=== PATIENT | female | born 1985 | race Hispanic/Latino ===

== ENCOUNTER 2017-07-06 11:53 | Emergency (ER) | payer OTHER ==
[2017-07-06 12:34] VITALS: BMI 45.8
[2017-07-06 13:04] LABS: BASO % 0.2 % (0.0-2.0); EOS # 0.1 K/uL (0.0-0.7); EOS % 0.6 % (0.0-4.0); HEMATOCRIT 36.6 % (34.0-47.0); LYMPH # 2.2 K/uL (1.0-4.3); LYMPH % 13.8 % (20.0-40.0); MEAN CORPUSCULAR HEMOGLOBIN 32.3 pg (27.0-31.0); MEAN CORPUSCULAR HGB CONC 34.7 g/dL (33.0-37.0); MEAN PLATELET VOLUME 9.3 fl (7.2-11.7); MONO # 1.1 K/uL (0.0-0.8); MONO % 7.1 % (0.0-10.0); NEUT # 12.5 K/uL (1.8-7.0); NEUT % 78.3 % (50.0-75.0); NRBC % 0.1 % (0.0-0.0); RBC URINE 1 /hpf (0-3); URINE BACTERIA MOD (<OCC); URINE BILIRUBIN NEGATIVE (NEGATIVE); URINE BLOOD NEGATIVE (NEGATIVE); URINE COLOR YELLOW (YELLOW); URINE GLUCOSE (UA) NEG (Normal); URINE KETONE NEGATIVE (NEGATIVE); URINE LEUKOCYTE ESTERASE NEG Leu/uL (Negative); URINE PROTEIN NEGATIVE (NEGATIVE); URINE UROBILINOGEN 0.2-1.0 mg/dL (0.2-1.0)
[2017-07-06 13:05] LABS: WBC URINE 5 /hpf (0-5)
[2017-07-06 13:16] LABS: BILIRUBIN,TOTAL 0.4 mg/dl (0.2-1.3); CALCIUM 9.2 mg/dL (8.4-10.2); GFR AFRICAN-AMERICAN > 60; GLUCOSE,RANDOM 101 mg/dL (65-105)
[2017-07-06 13:21] LABS: ALKALINE PHOSPHATASE 145 U/L (38-126); ALT/SGPT 30 U/L (9-52); AST/SGOT 34 U/L (14-36); BLOOD UREA NITROGEN 8 mg/dl (7-17); CARBON DIOXIDE 20 mmol/L (22-30); CHLORIDE 107 mmol/L (98-107); POTASSIUM 4.2 MMOL/L (3.6-5.0); SODIUM 139 mmol/l (132-148)
--- NOTE | 2017-07-06 17:07 | OBHP ---
Datetime: 07/06/2017 16:13 IP Adm Impression: Term, intrauterine IP Chief Complaint Other: headache and elevated BP IP Admit Plan: Observation/Evaluation; Discharge home Admit Comment, IP Provider: CC: I was sent by my MD for elevated bp and headache HPI: 32YO 38.3wks IUP presents to [facility] from MD office to be evalauted for elevated BP in o ffice and headache. Pt was found to have a BP of 149/92 in office and endorses occasional throbbing h eadache. Currently pt does not endorse headache, states that she gets occasional headaches (2x a week ), moderate intensity, and they away by themselves. They last 30mins to 1 hr and go away without any medications. Pt has hx of migrane headache and states that these headaches are similiar in nature to her migrane headaches. Endorses good FM, no LOF, no CTX and no VB. Denies n/v, abdominal pain (LUQ), blurry vision. : Dr. 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 -preeclampsia workup -blood work -vitals -UA and UC_S -continue monitor Blood work appreciated, Lactate dehydrogenase, uric acid, cmp, AST/ALT, platelets are wnl. wBc sig for elevated white count 16, but pt states that she has had that throughout . Pt is current ly asymptomatic and BPs are all stable, 100-110/50-60s. UA sig for moderate bacteria but pt asymptoma tic no dysuria or symptoms at this time- urine culture sent. Pt does not want to take any medicati ons at this time, pt would like to follow up with MD and wait for urine cultures. Pt encouraged to ta ke tylenol with headaches. Labor precautions given. Pt has follow up apt with Dr. Bundy on ay 07/13. D/c home with follow up. Pt seen with attending Dr. Shira Rodriguez, PGY I OB Hospitalist Addendum: Pt seen and examined by me. Agree w/ above. 32 yo at 38+2 wks s ent from Dr. Bundy's office for elavated BP and MOTT. Pt denies MOTT, vision changes, abdominal pain. Pt denies VB, LOF, ctxns and reports movment. Gen'l: pt appears comfortable lying in bed. VE deferred. NST reactive. CBC and CMP are wnl except WBC is elevated at 16. Pt has had elevated WBC throughout the . Ua is sl cloudy, mod bacteria, w/ 2 sq epi. Pt denies any sx of UTI exce pt frequency and declines starting abx. Urine cx sent. Pt discharged home w/ PEC and labor precauti ons. Pt to f/u w/ Dr. Bundy next week. (ES) Pelvic Type - PN: Adequate Extremities - PN: Normal Abdomen - PN: Not Done Back - PN: Not Done Breast - PN: Normal Lungs - PN: Normal Heart - PN: Normal Thyroid - PN: Not Done Neurologic - PN: Normal HEENT - PN: Normal General - PN: Normal FHR - Baseline A Provider: 150 EGA AdmitDate IP: 38.3 Vital Signs Provider: Reviewed; Within Normal Limits IP Chief Complaint: Other NICHD Variability Prov Fetus A: Moderate 6-25bpm NICHD Accel Fetus A IP Provider: 15X15 FHR Category Provider Fetus A: Category I Genitourinary Exam: Normal DTRs - PN: Not Done
[2017-07-06 21:14] VITALS: BP 104/53; PULSE 86; RESP 18; TEMP 98.1; O2SAT 97
== END 2017-07-06 15:00 | disposition home or self-care (01) ==
LOC: H.EROB2 11:53
DX: O13.3 Gestational [pregnancy-induced] hypertension without significant proteinuria, third trimester (principal); O99.113 Other diseases of the blood and blood-forming organs and certain disorders involving the immune mechanism complicating pregnancy, third trimester; D72.829 Elevated white blood cell count, unspecified; F17.200 Nicotine dependence, unspecified, uncomplicated; Z3A.38 38 weeks gestation of pregnancy; Z83.3 Family history of diabetes mellitus; Z90.49 Acquired absence of other specified parts of digestive tract; Z82.49 Family history of ischemic heart disease and other diseases of the circulatory system

== ENCOUNTER 2017-07-13 16:05 | Inpatient (IN) | payer OTHER ==
[2017-07-13 18:12] LABS: ALB/GLOB RATIO 1.1 (1.0-2.1); ALKALINE PHOSPHATASE 155 U/L (38-126); ALT/SGPT 27 U/L (9-52); AST/SGOT 35 U/L (14-36); BILIRUBIN,TOTAL 0.6 mg/dl (0.2-1.3); BLOOD UREA NITROGEN 11 mg/dl (7-17); CARBON DIOXIDE 21 mmol/L (22-30); CHLORIDE 108 mmol/L (98-107); GFR AFRICAN-AMERICAN > 60; GLUCOSE,RANDOM 99 mg/dL (65-105); POTASSIUM 4.2 MMOL/L (3.6-5.0); SODIUM 138 mmol/l (132-148); TOTAL PROTEIN 7.1 G/DL (6.3-8.2); URIC ACID 5.4 mg/Dl (2.2-7.5)
[2017-07-13 18:18] LABS: RBC URINE 5 /hpf (0-3); URINE BACTERIA MOD (<OCC); URINE BILIRUBIN NEGATIVE (NEGATIVE); URINE BLOOD NEGATIVE (NEGATIVE); URINE COLOR YELLOW (YELLOW); URINE GLUCOSE (UA) NEG (Normal); URINE KETONE NEGATIVE (NEGATIVE); URINE LEUKOCYTE ESTERASE NEG Leu/uL (Negative); URINE PROTEIN NEGATIVE (NEGATIVE); URINE UROBILINOGEN 0.2-1.0 mg/dL (0.2-1.0); WBC URINE 5 /hpf (0-5)
[2017-07-13 18:36] LABS: BASO % 0.3 % (0.0-2.0); EOS # 0.1 K/uL (0.0-0.7); EOS % 0.4 % (0.0-4.0); HEMATOCRIT 37.9 % (34.0-47.0); LYMPH # 2.5 K/uL (1.0-4.3); LYMPH % 14.7 % (20.0-40.0); MEAN CELL VOLUME 95.2 fl (81.0-99.0); MEAN CORPUSCULAR HEMOGLOBIN 31.4 pg (27.0-31.0); MEAN CORPUSCULAR HGB CONC 32.9 g/dL (33.0-37.0); MEAN PLATELET VOLUME 9.6 fl (7.2-11.7); MONO # 1.1 K/uL (0.0-0.8); MONO % 6.6 % (0.0-10.0); NEUT # 13.2 K/uL (1.8-7.0); NRBC % 0.1 % (0.0-0.0); RED CELL DISTRIBUTION WIDTH 13.1 % (11.5-14.5); WHITE BLOOD COUNT 16.9 K/uL (4.8-10.8)
[2017-07-13 19:36] VITALS: BMI 47.7
[2017-07-13] MEDS ORDERED: Penicillin G Potassium 5 MU in Sodium Chloride 0.9% 50 ML IVPB ONE (22:00)
[2017-07-14] MEDS ORDERED: Oxytocin 30 UNITS in Sodium Chloride 0.9% 500 ML IV ONE ×2 (10:14→18:57)
--- NOTE | 2017-07-14 10:14 | OBPN ---
Datetime: 07/14/2017 10:12 IP Progress Impression: Reassuring heart rate IP Procedures: Sterile Vag Exam IP Progress Plan: Augmentation Contraction Comments Provider: occasional FHR - Baseline A Provider: 140s IP Progress Note Comment: Complaints at this time. Plan to start Pitocin augmentation. All patient q uestions answered. Maternal well-being and being reassuring at this time. Vital Signs Provider: Reviewed; Within Normal Limits NICHD Accel Fetus A IP Provider: 15X15 FHR Category Provider Fetus A: Category I NICHD Variability Prov Fetus A: Moderate 6-25bpm Dilatation, Provider: FT Effacement, Provider: 50 Station, Provider: -3 NICHD Decel Fetus A IP Provider: None
[2017-07-14] MEDS: Lactated Ringer's 1,000 ML IV SCH ×3 (10:30→19:10)
[2017-07-14] MEDS ORDERED: Lactated Ringer's 2,000 ML IV SCH (19:00)
[2017-07-14] MEDS ORDERED: Morphine 1 mg/ml preservative-free Inj(Duramorph) ONE (19:22)
[2017-07-14] MEDS ORDERED: Morphine 5 mg/10 ml preservative-free Inj(Duramorph) ONE (19:23)
[2017-07-14] MEDS ORDERED: DiphenhydrAMINE 50 mg/ml Inj IVP PRN (20:55)
[2017-07-15] MEDS ORDERED: Oxycodone/Acetaminophen 5/325 mg Tab PO PRN ×5 (00:47→10:55)
[2017-07-15] MEDS: Lactated Ringer's 1,000 ML IV SCH (03:54)
[2017-07-15] MEDS ORDERED: Lactated Ringer's 1,000 ML IV SCH (03:57)
[2017-07-15] MEDS ORDERED: DiphenhydrAMINE 50 mg/ml Inj IVP PRN (03:57)
--- NOTE | 2017-07-15 08:15 | OBDS ---
DELIVERY PERSONNEL Delivery Doctor: Riana Bundy MD Scrub Nurse: Shasha hernandez Production Engineer: Rita Escobar RN/ Janeth Oneill rn Anesthesiologist: clarisse EVERETT/ DR De Jesus Resident: Bhaskar EVERETT MATERNAL INFORMATION Delivery Anesthesia: Spinal Medications in Delivery: Ancef 3g, pit 30/500 pit, pit Estimated Blood Loss (ml): 800 Placenta Cultured: No Maternal Complications: None Provider Comments: Primary and sterilization. Patient delivered a viable infant male with Apgars of 9 and 9 at 1 and 5 minutes respectively. Nor mal uterus, normal tubes and ovaries bilaterally. Estimated blood loss 800 mL Fluids 1500 mL lactated Ringer's Urine output 200 mL of clear urine at the end of procedure No complications Patient tolerated procedure well. LABOR SUMMARY EDC: 07/17/2017 00:00 No. Babies in Womb: 1 Attempted: No Labor Anesthesia: Intrathecal LABOR INFORMATION Reason for Induction: Other Reason for Induction Other: High BP in office as per Cervical Ripening Agents: Cervidil (Annotations: Cervidil 10mg inserted intravaginally by Dr. Muro ) Oxytocin: Induction Group B Beta Strep: Positive Antibiotics # of Doses: ancef 3grams Antibiotics Time of Last Dose: 07/14 Steroids Given: None Reason Steroids Not Administered: Not Applicable MEMBRANES Membranes Rupture Method: Artificial Rupture of Membranes: 07/14/2017 20:12 Length of Rupture (hrs): 0.02 Amniotic Fluid Color: Clear Amniotic Fluid Amount: Small Amniotic Fluid Odor: None STAGES OF LABOR Stage 3 hrs: 0 Stage 3 min: 1 CSECTION DELIVERY Primary Indication: Failed Induction Secondary Indication: N/A CSection Urgency: Elective CSection Incidence: Primary Labor: Labor Elective: Elective CSection Incision: Lower Uterine Transverse BABY A INFORMATION Delivery Date/Time: 07/14/2017 20:13 Method of Delivery: Born in Route : No : N/A Forceps: N/A Vacuum Extraction: N/A Shoulder Dystocia : No SHOULDER DYSTOCIA BABY A Infant Delivery Date/Time: 07/14/2017 20:13 PRESENTATION/POSITION BABY A Presentation: Cephalic Cephalic Presentation: Vertex Breech Presentation: N/A PLACENTA INFORMATION BABY A Placenta Delivery Time : 07/14/2017 20:14 Placenta Method of Delivery: Manual Removal Placenta Status: Delivered SCORES BABY A Heart Rate 1 min: >100 bpm Resp Effort 1 min: Good Cry Reflex Irritability 1 min: Cough or Sneeze or Pulls Away Muscle Tone 1 min: Active Motion Color 1 min: Body [place], Extremities Blue Resuscitation Effort 1 min: N/A SCORE 1 MIN: 9 Heart Rate 5 min: >100 bpm Resp Effort 5 min: Good Cry Reflex Irritability 5 min: Cough or Sneeze or Pulls Away Muscle Tone 5 min: Active Motion Color 5 min: Body [place], Extremities Blue Resuscitation Effort 5 min: N/A SCORE 5 MIN: 9 INFORMATION BABY A Gestational Age at Delivery: 39.3 Gestational Status: Term Outcome : Liveborn Condition : Stable Infant Sex: Male IDENTIFICATION/MEDS BABY A ID Band Number: [id number] ID Band Location: Left Leg; Left Arm WEIGHT/LENGTH BABY A Infant Birthweight (gms): 3550 Infant Weight (lb): 7 Weight (oz): 13 Length Inches: 20.00 Length cms: 50.8 CORD INFORMATION BABY A No. Cord Vessels: 3 Nuchal Cord : N/A Cord pH Baby Venous: None Cord Blood Taken: Yes Suction: Mouth ASSESSMENT BABY A Complications: None Physical Findings at Delivery: Other Physical Findings Other: Sacral Dimple as per Ped. Ultra sound ordered Respirations: Appears Normal [employer] Brake Coupler/ALS Called : No Infant Care By: DR Guallpa Transferred To: Nursery
[2017-07-15 09:20] LABS: BASO % 0.2 % (0.0-2.0); EOS # 0.1 K/uL (0.0-0.7); EOS % 0.6 % (0.0-4.0); HEMATOCRIT 34.6 % (34.0-47.0); LYMPH # 1.9 K/uL (1.0-4.3); LYMPH % 10.3 % (20.0-40.0); MEAN CORPUSCULAR HEMOGLOBIN 32.2 pg (27.0-31.0); MEAN CORPUSCULAR HGB CONC 33.9 g/dL (33.0-37.0); MEAN PLATELET VOLUME 9.5 fl (7.2-11.7); MONO # 1.2 K/uL (0.0-0.8); MONO % 6.9 % (0.0-10.0); NEUT # 14.9 K/uL (1.8-7.0); RED CELL DISTRIBUTION WIDTH 13.4 % (11.5-14.5); WHITE BLOOD COUNT 18.2 K/uL (4.8-10.8)
--- NOTE | 2017-07-15 09:24 | OBPPN ---
Datetime: 07/15/2017 09:21 PP Pain Prov: Within normal limits PP Nausea Prov: Denies PP Flatus Prov: Yes PP BM Prov: No PP Abdomen/Uterus Prov: Normal PP Lochia Prov: Normal PP C/S Incision Prov: Normal PP Progress Prov: Normal PP Comments Phys Exam Prov: Incision intact w/ steri strips PP Impression Prov: Normal progression PP Plan Prov: Continue present management PP Progress Note Prov: POD 1 s/p Primary c/s for failed IOL, doing well, breat and bottle feeidng Continue current management Vital Signs Provider PP: Reviewed; Within Normal Limits
[2017-07-15] MEDS: Oxycodone/Acetaminophen 5/325 mg Tab PO PRN ×3 (13:15→23:39)
[2017-07-16] MEDS ORDERED: Simethicone 80 mg Chewtab PO PRN (05:02)
[2017-07-16] MEDS: Simethicone 80 mg Chewtab PO PRN ×2 (05:14→13:25)
--- NOTE | 2017-07-16 09:39 | OBPPN ---
Datetime: 07/16/2017 09:37 PP Pain Prov: Within normal limits PP Nausea Prov: Denies PP Flatus Prov: Yes PP BM Prov: Yes PP Breasts Prov: Not Done PP Heart Prov: Normal PP Lungs Prov: Normal PP Abdomen/Uterus Prov: Normal PP Lochia Prov: Normal PP Vulva/Perineum Prov: Not Done PP CVA Tenderness Prov: Normal PP Extremities Prov: Normal PP C/S Incision Prov: Normal PP Progress Prov: Normal PP Impression Prov: Normal progression PP Plan Prov: Continue present management PP Progress Note Prov: H/H A; S/P sectoin day 2 PLAN: cont post op care anticiapte discharge tmrw Vital Signs Provider PP: Reviewed; Within Normal Limits
--- NOTE | 2017-07-16 18:08 | OBDCSUM ---
Datetime: 07/16/2017 15:35 Discharged to, Provider: Home Follow up at, Provider: Shey Wu Instr Activity: Normal activity; May be up to bathroom; May be up for meals; May Shower Disch Instr Diet: Regular Discharge Time: 07/16/2017 16:00 Follow up in weeks, Provider: in one to two weeks Disch Referrals: None Disch Activity Restrictions: No lifting; No sexual activity; Nothing in vagina - [place], tampon s, douche
[2017-07-16 22:58] VITALS: BP 131/89; PULSE 94; RESP 20; TEMP 97.3; O2SAT 98
== END 2017-07-16 18:40 | disposition home or self-care (01) | DRG 371 ==
LOC: H.EROB2 16:05 → H.EROB 16:48 → H.L&D 17:10 → H.EROB2 17:15 → H.OB/GYN 07-15 10:27 → H.ERHOLD 07-15 12:16 → H.OB/GYN 07-15 12:19
PROVIDERS: ADMIT Obstetrics & Gynecology; ATTEND Obstetrics & Gynecology
PROC: 10D00Z1 Extraction of Products of Conception, Low, Open Approach (ICD-10-PCS; principal; 2017-07-13)
PROC: 4A1HXCZ Monitoring of Products of Conception, Cardiac Rate, External Approach (ICD-10-PCS; 2017-07-13)
DX: O61.9 Failed induction of labor, unspecified (principal); Z37.0 Single live birth; Z3A.39 39 weeks gestation of pregnancy